=== PATIENT | male | born 1990 | race Caucasian/White ===

== ENCOUNTER 2019-06-25 10:24 | Emergency (ER) | payer SELFPAY ==
[2019-06-25 10:24] VITALS: BP 121/91; PULSE 55; RESP 14; TEMP 36.2; O2SAT 100
[2019-06-25] MEDS: Bupivacaine 0.25% Pres-Free 30 ML VIAL IJ (11:33)
[2019-06-25] MEDS: Penicillin V POTASSIUM 500 MG TAB PO (11:56)
--- NOTE | 2019-06-25 11:56 | NUR.NOTE ---
Nursing Note: Assisted provider with dental injection.
--- NOTE | 2019-06-25 12:21 | NUR.NOTE ---
Nursing Note: pt states no improvement in pain left upper jaw.Provider aware.
--- NOTE | 2019-06-25 12:27 | ED.GENADUL_ITS ---
Discharge Plan Disposition Patient Disposition: HOME Condition: Stable Discharge Details Chief Complaint: DentalOral Clinical Impression: Infected dental caries Primary Care Provider: None,None ED Provider: David Julian Home Meds and New Rx's Prescriptions: New penicillin V potassium 500 mg tablet 500 mg PO QID 7 Days Qty: 28 RF: 0 Discharge Instructions Instructions: Dental Abscess (ED), Dental Caries (ED) Additional Instructions: Feel free to return to the emergency department for any new or significant worsening of symptoms, fever chills, severe swelling to your face, any difficulty breathing or swallowing. Otherwise take your antibiotics as prescribed and for the full course of 7 days. You may use ibuprofen 400 mg every 4-6 hours as needed for discomfort. It is important that you follow-up with a dentist preferably in the next week for reassessment and more definitive care of your dental complaint. Referrals: [facility] Emergency Dept. [Outside] - Return if symptoms worsen Discharge Data Discharge Date/Time-TO BE ENTERED AT DEPARTURE: 06/25/19 12:39 Medical Decision Making Poor dentition with dental pain occurring over the last 2 weeks and worsening significantly over the last 24 hours. Patient has fractured mentation of tooth #13 and 14 with surrounding erythema to the base. No palpable abscess, no swelling to the face, no signs of Raghu's angina, peritonsillar retropharyngeal abscess. Patient afebrile. Verbal consent was obtained for dental block and 1.5 mL's of 0.25% Marcaine was injected for periapical block. Patient also given 400 mg of ibuprofen for pain control. Given fractured teeth with worsening pain and discomfort and some redness surrounding the gumline I do feel that antibiotics are warranted. Patient placed upon for penicillin 4 times daily for 1 week. Patient to follow-up with dentist in the next week otherwise return for new or worsening symptoms. After discussion of diagnosis and plan of care patient has no further needs, questions, or concerns and states clear understanding to return to the emergency department for any worsening symptoms. HPI General Mode of arrival: ambulatory . Date/Time Provider Initiated Documentation: 06/25/19 10:45 . Limitations to Documentation: no limitations . Information obtained by: patient . History of Present Illness 28 year old M presents to the emergency department with the chief complaint of Dental pain, described as severe, Quality is described as sharp, and is localized to the mouth. and it has been constant. No relieving factors improve symptom(s), Patient notes no other symptoms.. Patient did receive the following treatments prior to arrival, NSAID Related Data Home Medications Medication Instructions Recorded Confirmed penicillin V potassium 500 mg PO QID 7 Days #28 tab 06/25/19 Previous Rx's Medication Instructions Recorded penicillin V potassium 500 mg PO QID 7 Days #28 tab 06/25/19 Allergies Allergy/AdvReac Type Severity Reaction Status Date / Time No Known Allergies Allergy Unverified 06/25/19 10:30 General Stated Complaint: DentalOral SHANEKA: 4 Review of Systems Constitutional Denies chills and Denies fever(s) ENT Reports as per HPI, Denies change in voice, Reports dental pain, Denies dysphagia, Denies throat swelling and Denies tongue swelling Cardiovascular Denies chest pain and Denies dyspnea Respiratory Denies dyspnea, Denies stridor and Denies wheezing Gastrointestinal Denies abdominal pain, Denies dysphagia, Denies nausea and Denies vomiting Integumentary/Breasts Denies rash Allergic/Immunologic Denies throat swelling, Denies tongue swelling and Denies wheezing [facility] Social History Smoking/Tobacco Use Status: Current every day Alcohol Intake: never Drug use: Daily Substance use type: marijuana Do you feel safe at home: Yes Do you feel safe in your relationship?: Yes Exam Const General: cooperative Orientation: alert, awake and oriented x3 Limitations: mental status not altered [facility] Head: normal to inspection, normocephalic and atraumatic Ears: hearing grossly normal bilaterally, normal mastoids bilaterally and no periauricular adenopathy General nose exam: external nose normal Mouth: oropharynx normal, no drooling, no muffled voice, normal tongue and no trismus Teeth and gingiva: caries, poor dentition and other (Partially fractured tooth 13-14 erythema surrounding the base of the tooth) Throat: posterior oropharynx normal, tonsils normal and uvula midline Eyes General: appearance normal, both eyes and all related structures Pupils: PERRL Neck Neck: normal visual inspection, full ROM, no lymphadenopathy, no meningeal signs, trachea midline, supple, no anterior neck swelling and no midline deformity Resp Effort & Inspection: normal respiratory effort and able to speak in complete sentences Course Vital Signs Temperature 36.2 C L 06/25/19 10:24 Pulse 55 L 06/25/19 10:24 Respiratory Rate 14 06/25/19 10:24 Blood Pressure 121/91 H 06/25/19 10:24 Pulse Oximetry 100 06/25/19 10:24 Temperature 36.2 C L 06/25/19 10:24 Temperature Source Skin 06/25/19 10:24 Pulse 55 L 06/25/19 10:24 Respiratory Rate 14 06/25/19 10:24 Respiratory Effort 06/25/19 10:31 Blood Pressure 121/91 H 06/25/19 10:24 Blood Pressure Position Sitting 06/25/19 10:24 Pulse Oximetry 100 06/25/19 10:24 Oxygen Delivery Method Room Air 06/25/19 10:24 Oxygen Flow Rate 0 06/25/19 10:24 Comment states unable to talk or do anything if he doesn't have water in his mouth 06/25/19 10:24
[2019-06-25 12:29] VITALS: BP 121/91; PULSE 55; RESP 14; TEMP 36.2; O2SAT 100
[2019-06-25] MEDS: Ibuprofen 400 MG TAB PO (12:30)
== END 2019-06-25 12:39 | disposition home or self-care (01) ==
LOC: ER 12:42
PROVIDERS: Emergency Provider Nurse Practitioner Family
DX: K04.7 Periapical abscess without sinus (principal); K02.9 Dental caries, unspecified; K08.89 Other specified disorders of teeth and supporting structures
CPT/HCPCS: 64450; 99283

== ENCOUNTER 2022-12-03 09:26 | Emergency (ER) | payer SELFPAY ==
[2022-12-03] VITALS (9 sets, daily range): BP systolic 120–128; BP diastolic 66–85; PULSE 57–78; RESP 10–20; O2SAT 99–100
--- NOTE | 2022-12-03 09:30 | RT.EKG_ITS ---
APPROVED REPORT Exam: Resting ECG Reason for Exam: Dizziness Patient Location: E HR:70 bpm ECG Measurements Heart Rate 70 AXIS AZ 130 P 66 QRSd 81 QRS 71 QT 373 T 46 QTc 402 Conclusion Sinus rhythm...normal P axis, V-rate 60- 99 Normal [place] I have reviewed and interpreted ECG and agree with software generated interpretation. Normal Electrocardiogram
--- NOTE | 2022-12-03 09:43 | ED.GENADUL_ITS ---
Discharge Plan Disposition Patient Disposition: Home Discharge Details Clinical Impression: Mesenteric adenitis, Constipation, Hypomagnesemia Primary Care Provider: None,None ED Provider: Celia Sevilla Home Meds and New Rx's Prescriptions: New dicyclomine 20 mg tablet 20 mg PO TID PRN (Reason: stomach upset) Qty: 14 0RF Rx Instructions: Take 1 tablet up to 3 times daily as needed for stomach cramps or stomach upset Discharge Instructions Instructions: Constipation (ED), Hypomagnesemia (ED) Additional Instructions: At this time your magnesium was slightly low you were given a supplement here in the department. Please increase fluids over the next couple of days that are high in magnesium such as spinach and whole grains. CT shows something called mesenteric adenitis which is some enlarged lymph nodes. This can be caused by inflammation or infection sometimes. You may try [id number] glycerin suppositories or MiraLAX powder. You mix it in 8 ounces of liquid up to 3 times daily as needed for constipation. You can get these [id number]. You were placed on care management list to assist you with getting a primary care doctor established. Please collect stool as directed and bring in at your convenience on ice if needed. Follow up with primary care provider in 3-5 days. Return to ED sooner if any worsening pain, fever, vomiting, or concerns. Increase oral fluids. Please take Ibuprofen with food every 6 hours as needed for pain and swelling. Discharge Data Discharge Date/Time-TO BE ENTERED AT DEPARTURE: 12/03/22 12:14 Medical Decision Making 32-year-old male presents to the ER with a chief complaint of lower abdominal pa in, associated with nausea chills. He reports that today he had some lower back pain and pain in between his shoulder blades which has since resolved. Denies any heavy lifting. Denies any problems urinating or burning with urination. No vomiting no diarrhea. He reports his last normal bowel movement was 5 days ago and he has been having some pasty small hard stools. He is a daily smoker en dorses marijuana denies any alcohol use. 1203: CT shows some enlarged lymph nodes in the mesentery possibly mesenteric adenitis please see official report. Discussed CT results with patient who verb alized understanding. I did discuss his labs with him. He was given magnesium 40 mg p.o. here in the department. Prescription for Bentyl 20 mg tablets was given. I did discuss [id number] methods for constipation including glycerin suppository and MiraLAX which patient verbalized understanding. Discuss strict return instructions to return for any fever vomiting worsening abdominal pain or concerns. Patient was placed on care management list to help establish PCP. Outpatient stool studies were ordered. This text was generated using Mosaic dictation system, please disregard any oddi ties of phrase or misspellings. Lab Data Lab results reviewed: Yes I reviewed the patient's lab results. Labs: Laboratory Tests Range/Units 12/03/22 12/03/22 12/03/22 09:45 09:45 11:18 WBC (4.4-10.8) 10^3/uL 11.33 H RBC (4.36-5.78) 10^6/uL 5.76 Hgb (13.5-17.5) g/dL 17.0 Hct (40.0-50.0) % 48.4 MCV (80-95) fL 84 MCH (27.0-33.0) pg 29.5 MCHC (32.0-36.0) % 35.1 RDW (11.8-14.1) % 12.4 Plt Count (130-400) 10^3/uL 159 MPV (8.0-11.0) fL 12.8 H Immature Gran % 0.0 Neutrophils % 73.0 Band Neutrophils % 0 Lymphocytes % 10.0 Atypical Lymphs % 8 Monocytes % 4.0 Eosinophils % 5.0 Basophils % 0.0 Nucleated RBC % (0.0-0.3) % 0.0 Absolute Neutrophils (1.2-6.7) 10^3/uL 8.27 H Absolute Lymphocytes (1.2-3.4) 10^3/uL 2.04 Absolute Monocytes (0.1-0.8) 10^3/uL 0.45 Absolute Eosinophils (0.0-0.7) 10^3/uL 0.57 Absolute Basophils (0.0-0.2) 10^3/uL 0.00 RBC Morphology Normal Sodium (136-145) mmol/L 139 Potassium (3.5-5.1) mmol/L 4.0 Chloride (98-107) mmol/L 105 Carbon Dioxide (21.0-32.0) mmol/L 29.4 Anion Gap (3-11) mmol/L 4.6 BUN (7-18) mg/dL 11 Creatinine (0.70-1.30) mg/dL 0.9 Est GFR (CKD-EPI 2020) (mL/min/1.73m2) 114.93 Glucose (74-106) mg/dL 103 Calcium (8.5-10.1) mg/dL 9.0 Magnesium (1.8-2.4) mg/dL 1.7 L Total Bilirubin (0.2-1.0) mg/dL 0.3 AST (15-37) U/L 17 ALT (16-63) U/L 32 Alkaline Phosphatase (46-116) U/L 97 Total Protein (6.4-8.2) g/dL 7.3 Albumin (3.4-5.0) g/dL 4.0 Lipase (16-77) U/L 28 Urine Color (Yellow) Yellow Urine Clarity (Clear) Clear Urine pH (5-8) 7.0 Ur Specific Mitchell (1.005-1.025) 1.015 Urine Protein (Negative) mg/dL Negative Urine Ketones (Negative) mg/dL Negative Urine Blood (Negative) Negative Urine Nitrite (Negative) Negative Urine Bilirubin (Negative) Negative Urine Urobilinogen (Up TO 0.2) EU/dL 0.2 Ur Leukocyte Esterase (Negative) Negative Urine Glucose (Negative) mg/dL Negative HPI General Mode of arrival: ambulatory . Date/Time Provider Initiated Documentation: 12/03/22 09:27 . Limitations to Documentation: no limitations . Information obtained by: patient, RN notes reviewed and old records reviewed . HPI Narrative: 32-year-old male presents to the ER with a chief complaint of lower abdominal pain, associated with nausea chills. He reports that today he had some lower back pain and pain in between his shoulder blades which has since resolved. Denies any heavy lifting. Denies any problems urinating or burning with urination. No vomiting no diarrhea. He reports his last normal bowel movement was 5 days ago and he has been having some pasty small hard stools. He is a daily smoker endorses marijuana denies any alcohol use. No significant abdominal surgeries does have a history of kidney stones. Denies any chest pain or shortness of breath. He has not been taking any Tylenol or ibuprofen for pain. He reports that food makes his symptoms worse describes it as a pressure. Related Data Home Medications Medication Instructions Recorded Confirmed dicyclomine 20 mg tablet 20 mg PO TID PRN stomach upset #14 12/03/22 tabs Previous Rx's Medication Instructions Recorded dicyclomine 20 mg tablet 20 mg PO TID PRN stomach upset #14 12/03/22 tabs Allergies Allergy/AdvReac Type Severity Reaction Status Date / Time garlic Allergy Anaphylaxis Unverified 12/03/22 09:38 General Stated Complaint: Abd Prob SHANEKA: 3 Review of Systems All systems reviewed & are unremarkable except as noted in HPI and below Gastrointestinal Gastrointestinal: Reports abdominal pain, Reports change in bowel habits, Reports change in stool character, Reports constipation, Reports early satiety, Denies diarrhea, Reports nausea and Denies vomiting Genitourinary Genitourinary: Reports as per HPI, Denies dysuria and Reports flank pain Integumentary/Breasts Skin/Breast: Denies rash PFSH All Active Problems (Updated 12/03/22 @ 12:00 by Celia Sevilla NP) Mesenteric adenitis (Acute) Constipation (Acute) Hypomagnesemia (Acute) Social History Smoking/Tobacco Use Status: Current every day Smoking risk assessment performed?: Yes Alcohol Intake: never Drug use: Daily Substance use type: marijuana Do you feel safe at home: Yes Do you feel safe in your relationship?: Yes Exam Narrative Exam Narrative: Constitutional: Alert and oriented x3. Appears stated age. Normal body habitus. Head: Normocephalic, no trauma. Eyes: Pupils PERRL, Red reflex noted, EOM's intact. Eyelids symmetrical without lesions, discharge, or swelling. ENT: Bilateral TM's WNL, External ear normal to inspection, no mastoid TTP, swelling, or erythema, Nasal turbinates WNL, no nasal discharge. Normal dentition, Posterior pharynx WNL, no exudate. Chest: RRR, Normal S1, S2, distal pulses intact. Resp: Lungs clear to auscultation bilaterally, no wheezes, rales, or rhonchi. Abdomen: Soft, non-distended, Normoactive bowel sounds all 4 quads. Positive guarding and tenderness in all 4 quadrants worse in the right lower quadrant. Right CVA tenderness with palpation. Musculoskeletal: Normal gait, 5/5 strength to all four extremities. Skin: No suspicious rashes or lesions. Capillary refill less than 2 sec. Neurologic: Alert and oriented x 3. Motor: No deficits noted. Sensory: Intact bilaterally all 4 extremities. Hematologic/Lymphatic: No ecchymosis, no lymphadenopathy. Course Vital Signs Vital signs: Vital Signs Pulse 70 12/03/22 09:33 Respiratory Rate 18 12/03/22 09:33 Blood Pressure 125/85 12/03/22 09:33 Pulse Oximetry 99 12/03/22 09:33 Temperature Source Skin 12/03/22 09:33 Pulse 70 12/03/22 09:33 Respiratory Rate 18 12/03/22 09:33 Respiratory Effort Normal, Non-Labored 12/03/22 09:38 Blood Pressure 125/85 12/03/22 09:33 Blood Pressure Position Supine 12/03/22 09:33 Pulse Oximetry 99 12/03/22 09:33 Oxygen Delivery Method Room Air 12/03/22 09:33 Oxygen Flow Rate 0 12/03/22 09:33 Pain Level 3 12/03/22 09:33
[2022-12-03 09:53] LABS: Abs Immature Grans 0.03 10^3/uL (0.0-0.06); HCT 48.4 % (40.0-50.0); MCH 29.5 pg (27.0-33.0); MCHC 35.1 % (32.0-36.0); MCV 84 fL (80-95); MPV 12.8 fL (8.0-11.0); Platelet Count 159 10^3/uL (130-400); RBC 5.76 10^6/uL (4.36-5.78); RDW 12.4 % (11.8-14.1); RDW-SD 38.1 fL; WBC 11.33 10^3/uL (4.4-10.8)
[2022-12-03] MEDS: Normal Saline 1,000 ML 1000 ML IV (09:55)
[2022-12-03] MEDS: Famotidine 20 MG/2 ML VIAL IVP (09:55)
[2022-12-03 10:06] LABS: Absolute Eosinophil Count 0.57 10^3/uL (0.0-0.7); Absolute Lymphocyte Count 2.04 10^3/uL (1.2-3.4); Absolute Monocyte Count 0.45 10^3/uL (0.1-0.8); Absolute Neutrophil Count 8.27 10^3/uL (1.2-6.7); Atypical Lymphocytes % 8; Bands % 0; Diff Comment Manual Differential; RBC Morphology Normal
[2022-12-03 10:18] LABS: ALT 32 U/L (16-63); AST 17 U/L (15-37); Alkaline Phosphatase 97 U/L (46-116); Anion Gap 4.6 mmol/L (3-11); BUN 11 mg/dL (7-18); Bilirubin, Total 0.3 mg/dL (0.2-1.0); CO2 29.4 mmol/L (21.0-32.0); CREATININE 0.9 mg/dL (0.70-1.30); Chloride 105 mmol/L (98-107); Estimated GFR 114.93 (mL/min/1.73m2); Glucose 103 mg/dL (74-106); Lipase 28 U/L (16-77); Magnesium 1.7 mg/dL (1.8-2.4); Sodium 139 mmol/L (136-145); Total Protein 7.3 g/dL (6.4-8.2)
[2022-12-03] MEDS: Omnipaque 350 MG/ML 500 ML BTL-Imaging package IJ (10:57)
[2022-12-03] MEDS: Normal Saline - Diluent 50 ML VIAL IJ (10:57)
--- NOTE | 2022-12-03 11:05 | DI.CT_ITS ---
Exam(s) CT ABDOMEN PELVIS W EXAM: CT ABDOMEN PELVIS W CLINICAL HISTORY: RLQ Abd pain and Right flank pain, R/O [place], [place] TECHNIQUE: Imaging Protocol: Axial computed tomography images with coronal and sagittal reformatted images were created and reviewed CONTRAST MATERIAL: Intravenous: Omnipaque 350 Contrast volume:100 mL Oral: yes / no COMPARISON: No exams were available for comparison FINDINGS: ABDOMEN: Lung Bases: Normal where visualized. Liver: Normal density. No measurable mass. There is a nonspecific calcification along the posterior a bdominal cavity adjacent to the liver of uncertain if any clinical significance. Portal, Superior Mesenteric, and Splenic Veins: Unremarkable. Gallbladder and Biliary Tract: No radiodense calculus or dilation. Pancreas: Normal density, no abnormal calcifications or inflammatory process. Spleen: Normal. Adrenals: No masses seen. Kidneys: Normal size, contour and axis. No radiodense stones or obstructive uropathy. No masses seen. Abdominal Aorta: Abdominal portion non-dilated. Bowel: No obstruction or bowel wall thickening. Appendix is unremarkable. Peritoneal Cavity: No ascites, collection or mesenteric inflammatory response. No free air. Lymph Nodes: There are mildly enlarged lymph nodes seen in the mesentery. Bones: Within normal limits for the patient's age. Soft Tissues: Unremarkable. PELVIS: Bladder: The urinary bladder is incompletely distended. There is mild thickening of the wall noted. This may be due to the incomplete distension however cystitis cannot be excluded. Reproductive Organs: Unremarkable as visualized. Lymph Nodes: Within normal limits. Bones: Within normal limits for the patient's age. IMPRESSION: 1. No evidence of cholelithiasis/biliary ductal dilatation, nephrolithiasis/hydronephrosis or appendi citis. 2. No definite acute abdominal pelvic process. 3. Mild urinary bladder wall thickening. This may be due to underdistention. Cystitis cannot be exc luded. Please correlate clinically. 4. Findings were discussed with Celia Sevilla at 11:29 p.m. on 12/03/2022. RADIATION DOSE DELIVERED: 912.27mGy.cm Total DLP DATA REPOSITORY: All CT scans at this facility are submitted to the National Radiology Data Registry (NRDR) Dose Index Registry (DIR) with the [employer] (ACR). RADIATION OPTIMIZATION: All CT scans at this facility use at least one of these dose optimization te chniques: automated exposure control; mA and/or kV adjustment per patient size (includes targeted exa ms where dose is matched to clinical indication); or iterative reconstruction.
[2022-12-03 11:29] LABS: Bilirubin Negative (Negative); Blood Negative (Negative); Clarity Clear (Clear); Glucose Negative (Negative); Ketones Negative (Negative); Leukocyte Esterase Negative (Negative); Nitrite Negative (Negative); Specific Gravity 1.015 (1.005-1.025); Urobilinogen 0.2 EU/dL (Up TO 0.2)
[2022-12-03] MEDS: Magnesium Oxide 400 MG TAB PO (11:58)
--- NOTE | 2022-12-03 12:02 | NUR.NOTE ---
Nursing Note: PT info given to care management for follow up & to establish care for abdominal pain within the next week or two. Mari, ED
== END 2022-12-03 12:14 | disposition home or self-care (01) ==
PROVIDERS: Emergency Provider Registered Nurse Emergency
DX: I88.0 Nonspecific mesenteric lymphadenitis (principal); E83.42 Hypomagnesemia; K59.00 Constipation, unspecified
CPT/HCPCS: 36415; 80053; 83690; 93005; 96361; 96374; 99285; 74177; 81003; 83735; 85025; 93010

== ENCOUNTER 2023-06-19 09:31 | Emergency (ER) | payer SELFPAY ==
[2023-06-19 09:34] VITALS: BP 104/67; PULSE 55; RESP 18; TEMP 36.6; O2SAT 95
--- NOTE | 2023-06-19 10:06 | W.ED.GENAD ---
Discharge Plan Disposition Patient Disposition: Home Discharge Details Clinical Impression: Acute lumbosacral myofascial strain Primary Care Provider: None,None ED Provider: David Julian Home Meds and New Rx's Prescriptions: New cyclobenzaprine 10 mg tablet 10 mg PO TID PRN (Reason: muscle spasm) Qty: 20 0RF Discontinued dicyclomine 20 mg tablet 20 mg PO TID PRN (Reason: stomach upset) Qty: 14 0RF Patient Comments: pt states not using anymore Rx Instructions: Take 1 tablet up to 3 times daily as needed for stomach cramps or stomach upset Discharge Instructions Instructions: Low Back Strain (ED), Lower Back Exercises (ED) Additional Instructions: You may continue light duty activities as tolerated. Please avoid any significant bending lifting or twisting type motions. You may take 600 mg of ibuprofen every 6 hours or 440 mg of Aleve twice a day as needed for pain and discomfort. If you have any new or significant worsening of symptoms feel free to return the emergency department for reassessment otherwise follow-up with primary care provider if not improving Referrals: Primary Care Provider [Outside] (If not improving please follow-up with your primary care provider for reassessment) Medical Decision Making Patient presenting to the emergency department for chief complaint of back pain. Patient reports yesterday while trying to get up from the floor after playing with his child he started having significant pulling spasms in his back. Did state some initial radiation of pain into his buttocks but that is now resolved. He has used a lidocaine patch that is giving some relief but no other medication. Patient reports history of some intermittent back discomfort but no major injury or trauma. Physical exam shows paraspinal tenderness to the lumbar region. No spinal tenderness, step-off deformity, normal DTRs otherwise unremarkable exam. Based upon review of systems and physical exam I feel that patient is at LOW risk for ABDOMINAL AORTIC ANEURYSM, CAUDA EQUINA SYNDROME, EPIDURAL MASS LESION, SPINAL STENOSIS, OR HERNIATED DISK CAUSING SEVERE STENOSIS, thus I consider the discharge disposition reasonable. Discussed use of NSAIDs which patient is requesting just to use [id number] medication along with a prescription for Flexeril which patient did not want sent to the pharmacy so paper prescription was given as he states he does not want to use any prescription medications if needed but did prefer having an option. We have discussed the diagnosis and risks, and we agree with discharging home to follow-up with their primary doctor. We also discussed returning to the Emergency Department immediately if new or worsening symptoms occur. We have discussed the symptoms which are most concerning (e.g., saddle anesthesia, urinary or bowel incontinence or retention, changing or worsening pain) that necessitate immediate return. After discussion of diagnosis and plan of care patient has no further needs, questions, or concerns and states clear understanding to return to the emergency department for any worsening symptoms. This documentation was generated using [employer] system, please disregard any oddities of phrase or misspellings. HPI General Mode of arrival: ambulatory. Date/Time Provider Initiated Documentation: 06/19/23 09:47. Limitations to Documentation: no limitations. Information obtained by: patient, family and RN notes reviewed. History of Present Illness 32 year old M presents to the emergency department with the chief complaint of Back pain, described as moderate and severe, Quality is described as sharp, and is localized to the back. Patient reports no radiation. Patient started experiencing this day(s) (1) and it has been constant. No relieving factors improve symptom(s), Movement worsens symptoms . Patient notes no other symptoms.. Patient did receive the following treatments prior to arrival, none Related Data Home Medications Medication Instructions Recorded Confirmed cyclobenzaprine 10 mg tablet 10 mg PO TID PRN muscle spasm #20 06/19/23 tabs Previous Rx's Medication Instructions Recorded cyclobenzaprine 10 mg tablet 10 mg PO TID PRN muscle spasm #20 06/19/23 tabs Allergies Allergy/AdvReac Type Severity Reaction Status Date / Time garlic Allergy Anaphylaxis Unverified 06/19/23 09:38 General Stated Complaint: Nk/Back Pain SHANEKA: 4 Review of Systems Constitutional Constitutional: Denies chills and Denies fever(s) Cardiovascular Cardiovascular: Denies chest pain and Denies dyspnea on exertion Respiratory Respiratory: Denies cough and Denies dyspnea on exertion Gastrointestinal Gastrointestinal: Denies abdominal pain, Denies change in bowel habits, Denies diarrhea, Denies nausea and Denies vomiting Genitourinary Genitourinary: Denies difficulty urinating and Denies urinary incontinence Musculoskeletal Musculoskeletal: Reports as per HPI and Reports back pain Neurologic Neurologic: Denies sensory deficit PFSH All Active Problems Acute lumbosacral myofascial strain (Acute) Social History Smoking/Tobacco Use Status: Current every day Smoking risk assessment performed?: Yes Alcohol Intake: never Drug use: Daily Substance use type: marijuana Housing: apartment Do you feel safe at home: Yes Do you feel safe in your relationship?: Yes Exam Const General: cooperative and no acute distress Orientation: alert, awake and oriented x3 Neck Neck: normal visual inspection, full ROM and no meningeal signs Resp Effort & Inspection: normal respiratory effort Auscultation: clear to auscultation bilaterally Cardio Rate: regular rate Rhythm: regular rhythm Heart Sounds: S1 normal and S2 normal Back/Spine/Pelvis Thoracic/Lumbar Spine: straight leg raise negative bilaterally, pain with thoraco-lumbar ROM, paraspinal tenderness, thoraco-lumbar ROM limited, No thoracic spinal tenderness and No lumbar spinal tenderness Neuro General: patient alert, patient awake and patient oriented x3 DTR's: Rt Patellar: 2+, Lt Patellar: 2+, Rt Ankle: 2+ and Lt Ankle: 2+ Course Vital Signs Vital signs: Vital Signs Temperature 36.6 C 06/19/23 09:34 Pulse 55 L 06/19/23 09:34 Respiratory Rate 18 06/19/23 09:34 Blood Pressure 104/67 06/19/23 09:34 Pulse Oximetry 95 06/19/23 09:34 Temperature 36.6 C 06/19/23 09:34 Temperature Source Skin 06/19/23 09:34 Pulse 55 L 06/19/23 09:34 Respiratory Rate 18 06/19/23 09:34 Respiratory Effort Normal, Non-Labored 06/19/23 09:39 Blood Pressure 104/67 06/19/23 09:34 Blood Pressure Position Standing 06/19/23 09:34 Pulse Oximetry 95 06/19/23 09:34 Oxygen Delivery Method Room Air 06/19/23 09:34 Oxygen Flow Rate 0 06/19/23 09:34 Pain Level 6 06/19/23 09:34
[2023-06-19 10:15] VITALS: BP 104/67; PULSE 55; RESP 18; TEMP 36.6; O2SAT 95
== END 2023-06-19 10:16 | disposition home or self-care (01) ==
PROVIDERS: Emergency Provider Nurse Practitioner Family
DX: S39.012A Strain of muscle, fascia and tendon of lower back, initial encounter (principal)
CPT/HCPCS: 99283; 99284